=== PATIENT | male | born 1950 | race Caucasian/White ===

== ENCOUNTER 2018-08-02 09:23 | Inpatient (IN) ==
[2018-08-02] MEDS ORDERED: Sodium Chlor 0.9% Inj 500 ML IV.CONT ONE (09:45)
[2018-08-02] MEDS ORDERED: Chlorhexidine Gluconate 2% 1 Pack (2 Cloths) TOPICAL ONE (09:45)
[2018-08-02] MEDS ORDERED: Metoprolol Tartrate 25 MG Tablet PO ONE (09:45)
[2018-08-02] MEDS ORDERED: Chlorhexidine 4% Topical 120 APPLIC/120 ML Bottle TOPICAL SCH (10:00)
[2018-08-02] MEDS ORDERED: ceFAZolin 2 GM Premix Inj 2 GM/50 ML PIGGYBACK IV.SIG SCH (10:00)
[2018-08-02] MEDS ORDERED: Vancomycin Inj 1,000 MG in Sodium Chlor 0.9% Inj 250 ML IV.SIG SCH (10:00)
[2018-08-02] MEDS ORDERED: Propofol Inj 500 MG/50 ML Vial ONE (12:07)
[2018-08-02] MEDS ORDERED: Sugammadex Inj 200 MG/2 ML Vial IV.PUSH ONE (13:34)
[2018-08-02] MEDS ORDERED: Post-op Orders (for Pharmacy) OTHER STA (15:42)
[2018-08-02] MEDS ORDERED: Morphine Inj 4 MG/ML Vial IV.PUSH PRN (15:42)
[2018-08-02] MEDS ORDERED: Temazepam 15 MG Capsule PO PRN (15:42)
[2018-08-02] MEDS ORDERED: Bisacodyl 10 MG Supp RECTAL PRN (15:42)
--- NOTE | 2018-08-02 15:50 | P.OP ---
- Preoperative Diagnosis (1) Lumbar spinal stenosis Preoperative Diagnosis: Herniated nucleus pulposus left L4-5, foraminal. Left L4 radiculopathy. Foraminal stenosis left L4-5. Lumbar instability, L4-5 Postoperative Diagnosis: Same Date of procedure: 08/02/18 Procedure: Lumbar laminectomy left L4, L5, subtotal facet resection. Resection herniated nucleus pulposus left, L4-5. Posterior spinal fusion, lateral transverse process technique, L4-5. Posterior lateral interbody fusion L4-5. Placement of interbody cage, L4-5. Posterior spinal segmental instrumentation. Major bone grafting of the lumbar spine Anesthesia: GETA Surgeon: Gelacio Camara MD Monotype Operator: Marilin Aponte PA-C Operation and Findings: EBL: 100 ml NOTE: Marilin Aponte PA-C was present for the entire surgical procedure as my zoning assistant. In my medical opinion her skill and care was necessary for proper management of this patient INDICATIONS: This patient is a 68-year-old male with severe left leg pain. Investigative study shows evidence of left-sided foraminal stenosis L4-5 associated with a left L4 radiculopathy. Despite extensive care, the patient continued to be painful and symptomatic. Because of the nature of the foraminal stenosis, significant loss of bone is anticipated for the decompression. There is mild instability with widening of the facet joints. This additional instability will lead to the need of a surgical fusion at the time of decompression. INSTRUMENTATION: Sulko screws, extended tab, Stax cage PROCEDURE: The patient brought to the operating room and anesthetized the supine position. The patient positioned prone on the [place] frame on the Rory table. All pressure points are protected. The back was scrubbed with alcohol followed by Hibiclens followed by ChloraPrep and draped sterilely and antibiotics were given within a routine time window. A timeout was done. Lateral radiographic images used to identify the proper level for the procedure. Compared care for the preoperative studies. Skin markings were made anticipating surgical treatment. A left paramedian incision was made. The lamina and facet joint was exposed. We used a dilating retractor which was positioned over this region. The microscope was rolled into the field for visualization. A high-speed bur was used to take the lamina down and doing a subtotal facet resection. The exiting and crossing nerve roots were completely decompressed. There was a disc herniation into the foramen which was resected. This created significant left L4 nerve root compromise in the middle of the foramen. We would not have been able to successfully decompress this with a 4 level exposure, based on what we saw. A total discectomy was accomplished. The disc space was prepared. All cartilaginous material from the disc space was removed. A combination of demineralized bone matrix and Nucel stem cells were mixed together on the back table.. These were injected into the disc space. The cage was then placed according to regional hr manager's recommendation and deployed. Position was satisfactory. Additional bone graft was placed into the disc space. The outer edge of the facet joint was identified and prepared. Under fluoroscopic images, a bur was used to gain entrance into the pedicle followed by placement of a blunt probe, an awl and placement of proper length screws. Each screw was charged with electric current there are no abnormal potentials registered in either lower extremity. A proper length mansi was fitted and attached and tightened according to regional hr manager's recommendation. The wound was irrigated copiously. Bone grafting was placed along the lateral gutter in the region of the transverse process across this level. This was closed in layers with #1 Vicryl, 2-0 Vicryl and running intradermal 3-0 Vicryl followed by Steri-Strips and benzoin. On the contralateral side a separate exposure was made. The outer edge of the facet joints were identified. A bur was used to gain entrance into the pedicle followed by placement of a probe and proper length screws. Each screw was charged with electric current and no abnormal potentials registered in either lower extremity. The wound was irrigated copiously. Bone graft placed along the transverse process across this level. It was closed in layers using #1 Vicryl, 2-0 Vicryl and running intradermal 3-0 Vicryl followed by Steri-Strips and benzoin. Intraoperative radiographs were obtained. No complication was appreciated. The patient had a sterile dressing applied. The patient was awakened and taken to recovery room in satisfactory condition. FINDINGS: There is evidence of moderate instability at that level more than you could appreciate based on preoperative x-rays. The final solution appeared to be excellent. No complication was appreciated.
[2018-08-02] MEDS ORDERED: fentaNYL Citrate Inj 100 MCG/2 ML Ampul ONE (16:35)
[2018-08-02] MEDS ORDERED: *morphine SULFATE 4 MG/ML PERIprocedure ONLY ONE ×2 (16:42→16:53)
--- NOTE | 2018-08-02 17:57 | XR ---
EXAM DATE: 08/02/2018 5:54 PM EST AGE/SEX: 68 years / Male INDICATIONS: Laminectomy of the lumbar done in the operating room. CLINICAL DATA: This is the patient's initial encounter. Patient reports that signs and symptoms have been present for 1 day and indicates a pain score of Nonresponsive. MEDICAL/SURGICAL HISTORY: Non-responsive. Non-responsive. COMPARISON: No prior exams available for comparison. FINDINGS: Status post lumbar spinal surgery with fusion at L4-5. There is good alignment of the fusion. The jazmyn dware is grossly intact. CONCLUSION: Good position and alignment of the lower lumbar spinal fusion at L4-5. Electronically signed by: Stuart Barbosa MD Board Certified Radiologist 08/02/2018 5:55 PM EST
[2018-08-02] MEDS: ceFAZolin 1 GM Premix Inj 1 GM/50 ML PIGGYBACK IV.SIG SCH (19:55)
[2018-08-02] MEDS: Famotidine 20 MG Tablet PO SCH (20:00)
[2018-08-02] MEDS: Multivitamin/Minerals Therapeutic Tablet PO SCH (20:00)
[2018-08-02] MEDS: Senna/Docusate Sodium 8.6/50 MG Tablet PO SCH (20:00)
--- NOTE | 2018-08-02 22:11 | P.DS ---
Date of admission: 08/02/18 09:23 Primary care physician: No Primary Care Physician Attending physician on discharge: Gelacio Camara Anticipated date of discharge: 08/03/18 DS: Diagnosis - Discharge Diagnosis (1) Lumbar spinal stenosis Status: Acute DS: Medications - Discharge Medications Prescriptions: hydrocodone-acetaminophen 1 tab PO Q4H PRN #42 tab PRN Reason: Acute Pain DS: Summary - Time Spent with Patient Total time spent providing and/or coordinating discharge services: - Quality: VTE Deep Vein Thrombosis/Pulmonary Embolism Present on Admission: No Exam Vital signs: Vital Signs 08/02/18 10:11 08/02/18 16:21 08/02/18 16:30 Temperature 99.1 F 97.6 F Pulse Rate 73 85 92 H Respiratory Rate 16 16 Blood Pressure 113/62 94/52 L 104/56 L Pulse Oximetry 96 90 L 97 08/02/18 16:45 08/02/18 17:00 08/02/18 17:20 Temperature 98.2 F Pulse Rate 87 87 87 Respiratory Rate 15 15 17 Blood Pressure 125/63 111/61 106/58 L Pulse Oximetry 100 100 100 08/02/18 17:53 08/02/18 20:00 Temperature 97.5 F L 97.5 F L Pulse Rate 79 89 Respiratory Rate 18 18 Blood Pressure 112/61 134/80 Pulse Oximetry 97 93 L Intake & Output 08/02/18 08/02/18 08/03/18 06:59 18:59 06:59 Intake Total 1400 / 1400 Output Total 200 / 200 Balance 1200 / 1200 Weight 83.4 kg 83.4 kg Intake: IV 1300 / 1300 LR 1000 mL Inj 1,000 ML @ 30 1000 / 1000 mls/hr IV.CONT .Q24H ONE Rx#: [id number] Vancomycin Inj 1,000 MG In NS 250 / 250 Inj 250 ML @ 250 mls/hr IV.SIG WASTE AND BATTING WASTE [facility] Rx#:[id number] Ancef 2 GM Premix Inj 2 gm In 50 / 50 50 ml @ 100 mls/hr IV.SIG WASTE AND BATTING WASTE [facility] Rx#:[id number] Anesthesia Amount 100 / 100 Output: Estimated Blood Loss 100 / 100 Urine Amount (Catheter) 100 / 100 Indwelling Urethral Catheter 100 / 100 Other: Date of Last Bowel Movement 08/02/18 Weight On Admission 83.4 kg Results Procedures completed during hospitalization: Left lumbar laminectomy L45, resection foraminal disc herniation, subtotal facet resection, posterior lumbar fusion, posterior spinal instrumentation, interbody cage L45, bone graft. Labs on day of discharge: Labs from last 24 hours 08/02/18 10:05 Blood Type O Positive Blood Type Recheck Required Antibody Screen Negative - Impressions ITS Impressions Lumbar Spine X-Ray 08/02/18 00:00 CONCLUSION: Good position and alignment of the lower lumbar spinal fusion at L4-5. Discharge Plan - Discharge Disposition Patient Disposition: Discharge Home - Discharge Condition Condition: Good - Discharge Order Discharge Orders: Discharge Order (Routine); Ordered 08/03/18 Ordered By: Gelacio Camara - Physicians Team Primary Care Provider: Primary Care Xi Valadez Attending Provider: Gelacio Camara Other Providers: Krystyna Dos Santos MD - Rxs /Orders / Referrals /Forms Prescriptions: New hydrocodone-acetaminophen 10-325 mg Tablet 1 tab PO Q4H PRN (Reason: Acute Pain) Qty: 42 RF: 0 Continue allopurinol 100 mg Tablet 100 mg PO DAILY amitriptyline 25 mg Tablet 25 mg PO DAILY atorvastatin 10 mg Tablet 10 mg PO DAILY ranitidine HCl 300 mg Tablet 300 mg PO HS tamsulosin 0.4 mg Capsule 0.4 mg PO DAILY tramadol 50 mg Tablet 50 mg PO Q6H PRN (Reason: Pain) Ambulatory Orders / Order Sets / DME: Adjustable Commode 3-in-1 (1 each) (Routine) Location: Determined by Patient Ordered By: Gelacio Camara Walker With Front Wheels (1 each) (Routine) Location: Determined by Patient Ordered By: Gelacio Camara Referrals: Primary Care Xi Valadez [Primary Care Provider] - See Instructions - Discharge Instructions Patient Printed Instructions: Laminectomy (DC) - Post Discharge Care Plan Care Plan Goals: Your Health Problems: Foraminal disc herniation L45 Lumbar spinal stenosis Lumbar ankylosis L45 Goals to Promote Your Health: * To prevent worsening of your condition * To maintain your health at the optimal level Directions to Meet Your Goals: * Take your medications as prescribed * Follow your dietary instruction. Pursue a high fiber diet for the next 3-5 days to avoid constipation which is a common side effect of anesthesia and pain medications. Stay well hydrated. * Follow activity as directed. Continue your lumbar brace second time worker when you are out of bed for the next 10-12 weeks. * Keep your appointments as scheduled * Take your immunizations and boosters as scheduled * If your symptoms worsen call your PCP * If no PCP go to Urgent Care or Emergency Room Smoking is dangerous to your health. Avoid second hand smoke. You may reach the 24-hour crisis hotline for domestic abuse at .
[2018-08-03] MEDS: ceFAZolin 1 GM Premix Inj 1 GM/50 ML PIGGYBACK IV.SIG SCH ×2 (06:05)
--- NOTE | 2018-08-03 08:02 | P.PNOP ---
Subjective Interval history: Moderate back pain. NO new leg pain. Left leg stable. No new nausea. Took a pain pill this morning. No CP or SOB. Physical Exam Vital signs: Vital Signs 08/02/18 10:11 08/02/18 16:21 08/02/18 16:30 Temperature 99.1 F 97.6 F Pulse Rate 73 85 92 H Respiratory Rate 16 16 Blood Pressure 113/62 94/52 L 104/56 L Pulse Oximetry 96 90 L 97 08/02/18 16:45 08/02/18 17:00 08/02/18 17:20 Temperature 98.2 F Pulse Rate 87 87 87 Respiratory Rate 15 15 17 Blood Pressure 125/63 111/61 106/58 L Pulse Oximetry 100 100 100 08/02/18 17:53 08/02/18 20:00 08/02/18 23:09 Temperature 97.5 F L 97.5 F L Pulse Rate 79 89 Respiratory Rate 18 18 18 Blood Pressure 112/61 134/80 Pulse Oximetry 97 93 L 08/02/18 23:45 08/03/18 04:20 08/03/18 07:09 Temperature 99.1 F 97.7 F Pulse Rate 105 H 71 Respiratory Rate 18 18 18 Blood Pressure 153/96 H 104/61 Pulse Oximetry 93 L 93 L Intake & Output 08/02/18 08/03/18 08/03/18 18:59 06:59 18:59 Intake Total 1400 / 1400 1250 / 1250 Output Total 200 / 200 1650 / 1650 Balance 1200 / 1200 -400 / -400 Weight 83.4 kg 83.4 kg Intake: IV 1300 / 1300 1150 / 1150 LR 1000 mL Inj 1,000 ML @ 80 1000 / 1000 1000 / 1000 mls/hr IV.CONT .[id number] [facility] Rx# :[id number] Vancomycin Inj 1,000 MG In NS 250 / 250 Inj 250 ML @ 250 mls/hr IV.SIG CP[facility] Rx#:[id number] Ancef 1 GM Premix Inj 1 gm In 150 / 150 50 ml @ 100 mls/hr IV.SIG Q6H [facility] Rx#:[id number] Ancef 2 GM Premix Inj 2 gm In 50 / 50 50 ml @ 100 mls/hr IV.SIG CPAS [facility] Rx#:[id number] Oral 100 / 100 Anesthesia Amount 100 / 100 Output: Urine 1650 / 1650 Estimated Blood Loss 100 / 100 Urine Amount (Catheter) 100 / 100 Indwelling Urethral Catheter 100 / 100 Other: # Voids 1 Date of Last Bowel Movement 08/02/18 # Bowel Movements 0 Weight On Admission 83.4 kg Narrative: Laying in bed No acute distress L/S Dressing intact, no drainage, mild swelling, no erythema +motor at/ehl, +sens Neg homans bilat - Constitutional no acute distress - Urinary Catheter Management Indwelling Urethral Catheter Cath placed during this visit: yes, but has since been removed by the nurse Reason for continuing: Hourly intake/output Removal date: 08/02/18 Removal time: 17:00 Results - Labs Laboratory Results - last 24 hr 08/02/18 10:05 Blood Type O Positive Blood Type Recheck Required Antibody Screen Negative - Imaging Impressions Lumbar Spine X-Ray 08/02/18 00:00 CONCLUSION: Good position and alignment of the lower lumbar spinal fusion at L4-5. - Procedures Left lumbar laminectomy L45, resection foraminal disc herniation, subtotal facet resection, posterior lumbar fusion, posterior spinal instrumentation, interbody cage L45, bone graft. Assessment and Plan - Ortho Post Op Day # 1 - Problem List (1) Lumbar spinal stenosis Code(s): M48.061 - Spinal stenosis, lumbar region without neurogenic claudication Status: Acute - Assessment and Plan pod#1 s/sp Lami/Fusion L45 Doing well. No new leg pain. Ok to d/c home later today. No HHC needed. Wear brace when out of bed for 10-12 weeks. Hold dressing changes for 4-5 days unless saturated. Ok to leave open at that time IF dry. Cover if irritated by brace and use dry dresing. PO pain meds as needed. Daily ambulation w walker as tolerated. F/U in 2 weeks as scheduled.
[2018-08-03] MEDS: Famotidine 20 MG Tablet PO SCH (08:10)
[2018-08-03] MEDS: Senna/Docusate Sodium 8.6/50 MG Tablet PO SCH (08:11)
[2018-08-03] MEDS: Multivitamin/Minerals Therapeutic Tablet PO SCH (08:11)
[2018-08-03] MEDS ORDERED: Allopurinol 100 MG Tablet PO SCH (09:00)
[2018-08-03] MEDS ORDERED: Amitriptyline 25 MG Tablet PO SCH (09:00)
== END 2018-08-03 12:37 | disposition home or self-care (01) ==
LOC: HSDI 09:23 → N06 17:33
PROVIDERS: ADMIT Orthopaedic Surgery Orthopaedic Surgery of the Spine; ATTEND Orthopaedic Surgery Orthopaedic Surgery of the Spine